=== PATIENT | female | born 1945 | race Caucasian/White ===

== ENCOUNTER 2016-12-07 13:18 | Inpatient (IN) | payer MEDICARE ==
[2016-12-07] MEDS ORDERED: IPRATROPIUM-ALBUTEROL 3 ML NEB INHALATION STA (13:28)
--- NOTE | 2016-12-07 13:40 | ED ---
General Adult HPI - General Chief complaint: Shortness of Breath Stated complaint: ROMAN Time Seen by Provider: 12/07/16 13:23 Source: patient, RN notes reviewed, old records reviewed Mode of arrival: wheelchair - History of Present Illness Initial comments: This is a 71-year-old female ER for evaluation of significant stress breath. Patient comes earlier today for evaluation of increased cough congestion shortness of breath, patient states she has a long history of smoking but no formal diagnosis of COPD or asthma. No recent fevers, shows an increased cough and congestion. Denies chest pain. Denies travel history. Denies recent hospitalizations. Patient states she has no family doctor - Related Data Allergies Allergy/AdvReac Type Severity Reaction Status Date / Time No Known Allergies Allergy Verified 12/07/16 13:29 Review of Systems ROS Statement: Those systems with pertinent positive or pertinent negative responses have been documented in the HPI. ROS Other: All systems not noted in ROS Statement are negative. Past Medical History Past Medical History: COPD, Hyperlipidemia, Hypertension, Myocardial Infarction ([place]) History of Any Multi-Drug Resistant Organisms: None Reported Past Surgical History: Unable to Obtain Past Psychological History: No Psychological Hx Reported Smoking Status: Current every day smoker Past Alcohol Use History: None Reported Past Drug Use History: None Reported General Exam General appearance: alert, in no apparent distress, anxious, in distress Head exam: Present: atraumatic, normocephalic, normal inspection Eye exam: Present: normal appearance, PERRL, EOMI. Absent: scleral icterus, conjunctival injection, periorbital swelling ENT exam: Present: normal exam, mucous membranes moist Neck exam: Present: normal inspection. Absent: tenderness, meningismus, lymphadenopathy Respiratory exam: Present: normal lung sounds bilaterally, respiratory distress , wheezes, accessory muscle use, decreased breath sounds, prolonged expiratory. Absent: rales, rhonchi, stridor Cardiovascular Exam: Present: regular rate, normal rhythm, normal heart sounds. Absent: systolic murmur, diastolic murmur, rubs, gallop, clicks GI/Abdominal exam: Present: soft, normal bowel sounds. Absent: distended, tenderness, guarding, rebound, rigid Extremities exam: Present: normal inspection, full ROM, normal capillary refill. Absent: tenderness, pedal edema, joint swelling, calf tenderness Back exam: Present: normal inspection Neurological exam: Present: alert, oriented X3, CN II-XII intact Psychiatric exam: Present: normal affect, normal mood Skin exam: Present: warm, dry, intact, normal color. Absent: rash Course Vital Signs 12/07/16 13:25 Temperature 96.9 F L Pulse Rate 99 Respiratory 26 H Rate Blood Pressure 113/74 O2 Sat by Pulse 88 L Oximetry - Reevaluation(s) Reevaluation #1: 12/07/16 13:51 Patient does have some significant improvement after prolonged breathing treatment Reevaluation #2: 12/07/16 13:52 Patient continues to deny any chest pain Reevaluation #3: 12/07/16 13:[address] Hassan regarding patient, okay for admission Medical Decision Making - Medical Decision Making 71 female in the ER with long history of smoking no formal diagnosis of COPD but likely underlying COPD with exacerbation and hypoxia. Patient be admitted for continued breathing treatments steroids IV resuscitation and cardiopulmonary monitoring - Radiology Data Radiology results: report reviewed (Chest x-ray is negative for acute disease), image reviewed Critical Care Time Critical Care Time: Yes Total Critical Care Time: 31 Disposition Clinical Impression: Acute exacerbation of chronic obstructive airways disease, Asthma with exacerbation, Hypoxia Disposition: ADMITTED IP TO THIS HOSP Condition: Fair Referrals: None,Stated [Primary Care Provider] - 1-2 days
[2016-12-07] MEDS ORDERED: methylPREDNISolone SOD SUCCI 125 MG/2 ML VIAL IV STA (13:50)
[2016-12-07 13:52] LABS: Basophils # (A) 0.1 k/uL (0-0.2); Basophils % (A) 1 %; CHCM 34.8; Eosinophils # (A) 0.3 k/uL (0-0.7); Eosinophils % (A) 3 %; HDW 2.33; HGB 15.6 gm/dL (11.4-16.0); Luc # (Auto) 0.25; Luc % (Auto) 2; Lymphocytes % (A) 9 %; MCH 32.4 pg (25.0-35.0); MCV 95.3 fL (80.0-100.0); Mean Platelet Volume 8.4; Monocytes # (A) 0.5 k/uL (0-1.0); Monocytes % (A) 4 %; Neutrophils # (A) 8.4 k/uL (1.3-7.7); Neutrophils % (A) 81 %; RBC 4.83 m/uL (3.80-5.40); WBC 10.5 k/uL (3.8-10.6); WBC (Perox) 9.98
[2016-12-07 14:01] LABS: Partial Thromboplastin Time 23.6 sec (22.0-30.0); Prothrombin Time 10.5 sec (9.0-12.0)
--- NOTE | 2016-12-07 14:02 | XR ---
EXAMINATION TYPE: XR chest 2V DATE OF EXAM: 12/07/2016 COMPARISON: 02/05/2013 INDICATION: Weakness short of breath TECHNIQUE: Frontal and lateral views of the chest are obtained. FINDINGS: The heart size is normal. The pulmonary vasculature is normal. Some mild elevation of the right diaphragm and blunting the right costophrenic angle is present. Margot picious infiltrate is not otherwise identified. IMPRESSION: 1. Blunting of the right costophrenic angle. Atelectasis and pneumonia could be considered. Follow-up can be performed.
[2016-12-07] MEDS: SODIUM CHLORIDE 0.9% 1,000 ML IV SCH (14:06)
[2016-12-07 14:12] LABS: ALT 30 U/L (9-52); AST 23 U/L (14-36); Alkaline Phosphatase 84 U/L (38-126); Anion Gap 8 mmol/L; Blood Urea Nitrogen 22 mg/dL (7-17); Calcium 9.2 mg/dL (8.4-10.2); Carbon Dioxide 24 mmol/L (22-30); Chloride 107 mmol/L (98-107); Glucose 100 mg/dL (74-99); Magnesium 1.9 mg/dL (1.6-2.3); Non-African American GFR(MDRD) >60 (>60 ml/min/1.73 sqM); Potassium 5.5 mmol/L (3.5-5.1); Sodium 139 mmol/L (137-145); Total Bilirubin 0.7 mg/dL (0.2-1.3); Total Protein 6.5 g/dL (6.3-8.2)
[2016-12-07 14:17] LABS: Creatine Kinase 77 U/L (30-135)
[2016-12-07 14:29] LABS: Troponin I <0.012 ng/mL (0.000-0.034)
[2016-12-07] MEDS: IPRATROPIUM-ALBUTEROL 3 ML NEB INHALATION SCH ×2 (15:31→19:32)
[2016-12-07] MEDS ORDERED: ALPRAZolam 0.25 MG TAB PO PRN (16:13)
[2016-12-07 17:33] VITALS: BMI 27.1
[2016-12-07 18:55] LABS: Amorphous Sediment,Urine Rare /hpf; Appearance,Urine Cloudy (Clear); Bilirubin,Urine Negative (Negative); Glucose,Urine (UA) Negative (Negative); Ketones,Urine Negative (Negative); Leukocyte Esterase,Urine Negative (Negative); Mucus,Urine Many /hpf; Nitrite,Urine Negative (Negative); Particle Count 7311; Protein,Urine 1+ (Negative); RBC,Urine 7 /hpf (0-5); Specific Gravity,Urine 1.028 (1.001-1.035); Squamous Epithelial Cell,Urine 4 /hpf (0-4); UA Billing (MACRO vs. MICRO) MICRO; WBC,Urine 1 /hpf (0-5)
[2016-12-07] MEDS: AZITHROMYCIN 500 MG TAB PO SCH (19:10)
[2016-12-07] MEDS: methylPREDNISolone SOD SUCCI 125 MG/2 ML VIAL IV SCH (19:11)
[2016-12-07 19:29] LABS: Glucose,Whole Blood 206 mg/dL (75-99)
[2016-12-07] MEDS: BUDESONIDE 1 MG/2 ML NEBU INHALATION SCH (19:32)
[2016-12-07] MEDS: FORMOTEROL FUMARATE 20 MCG/2 ML NEBU INHALATION SCH (19:32)
[2016-12-07] MEDS: INSULIN LISPRO (humaLOG) 300 UNIT/3 ML VIAL SQ SCH ×2 (19:42→20:06)
[2016-12-07 20:16] LABS: Hemoglobin A1C 5.9 % (4.2-6.1)
--- NOTE | 2016-12-07 22:39 | HP ---
HISTORY AND PHYSICAL DATE OF SERVICE: 12/07/2016 CHIEF COMPLAINT: Shortness of breath, cough and sputum. HISTORY OF PRESENT ILLNESS: This 71-year-old woman with a past medical history of multiple medical problems, including COPD, hypertension, hyperlipidemia, history of myocardial infarction, not being followed by any primary physician currently, was complaining of increasing shortness of breath. The patient also had a cough and sputum. Patient came to [facility], and the possibility of right lower lobe costophrenic angle blunting and possible pneumonia are considered. There is no history of fever, rigor or chills; no history of headache, loss of consciousness. The patient continues to smoke at this time. PAST MEDICAL HISTORY: 1. Hypertension. 2. Hyperlipidemia. 3. COPD. 4. Myocardial infarction. MEDICATIONS PRIOR TO ADMISSION: None. ALLERGIES: NONE. FAMILY HISTORY: No history of heart disease or strokes in the family. SOCIAL HISTORY: History of smoking. No history of alcohol intake. REVIEW OF SYSTEMS: ENT: No diminished hearing. No diminished vision. CARDIOVASCULAR SYSTEM: No angina. RESPIRATION: As mentioned earlier. GI: No nausea, vomiting. : No dysuria, retention. NERVOUS SYSTEM: No numbness or weakness. ALLERGY/IMMUNOLOGY: No asthma, hayfever. MUSCULOSKELETAL: As mentioned earlier. HEMATOLOGY/ONCOLOGY: No history of anemia. ENDOCRINE: No history of diabetes, hypothyroidism. CONSTITUTIONAL: As mentioned earlier. DERMATOLOGY: Negative. RHEUMATOLOGY: Negative. PSYCHIATRY: As mentioned earlier. PHYSICAL EXAMINATION: Patient is alert, oriented x3. Pulse 60, blood pressure 151/67, respiration 16, temperature 97.5, pulse ox 91% on 3 L. HEENT: Conjunctivae normal. NECK: No jugular venous distention. CARDIOVASCULAR SYSTEM: S1, S2 muffled. RESPIRATION: Breath sounds diminished at the bases. A few scattered rhonchi, expiratory wheezing and crackles bilaterally. Breathing efforts are markedly increased. Accessory muscles of respiration are acting. ABDOMEN: Soft, non-tender. No mass palpable. No hepatosplenomegaly. LEGS: No edema. No swelling. NERVOUS SYSTEM: Higher functions as mentioned earlier. Moves all 4 limbs. No focal motor or sensory deficits. LYMPHATICS: No lymph node palpable in neck, axillae or groin. SKIN: No ulcer, rash, bleeding. LABS: CBC within normal limits. Sodium 139, potassium 5.5. ASSESSMENT: 1. Chronic obstructive pulmonary disease, acute exacerbation, with acute purulent tracheobronchitis or right bronchopneumonia. 2. History of nicotine dependence. 3. Hyperkalemia. 4. Hyperlipidemia. 5. Hypertension. 6. History of myocardial infarction. 7. History of nicotine dependence. RECOMMENDATIONS AND DISCUSSION: In this 71-year-old woman who presented with multiple complex medical issues, we will monitor the patient closely, continue the current medication, continue symptomatic treatment, continue with IV steroids. Will initiate broad-spectrum IV antibiotics. DVT prophylaxis. I would recommend Rocephin and Zithromax. Smoking cessation; Habitrol 21. Symptomatic treatment. Monitor closely. I would also recommend pulmonary consultation with Dr. Sevilla. The patient would like to follow up with Dr. Tavares May in the outpatient setting. A copy of this dictation will be forwarded to Dr. May. Prognosis guarded. MMCYRUSL / IJN: [id number] /
[2016-12-08] MEDS: methylPREDNISolone SOD SUCCI 125 MG/2 ML VIAL IV SCH ×5 (01:20→23:49)
[2016-12-08] MEDS: ACETAMINOPHEN TAB 500 MG TAB PO PRN (01:22)
[2016-12-08 07:01] LABS: Glucose,Whole Blood 144 mg/dL (75-99)
[2016-12-08] MEDS: IPRATROPIUM-ALBUTEROL 3 ML NEB INHALATION SCH ×4 (07:10→19:41)
[2016-12-08] MEDS: BUDESONIDE 1 MG/2 ML NEBU INHALATION SCH ×2 (07:10→19:41)
[2016-12-08] MEDS: FORMOTEROL FUMARATE 20 MCG/2 ML NEBU INHALATION SCH ×2 (07:10→19:41)
[2016-12-08] MEDS: INSULIN LISPRO (humaLOG) 300 UNIT/3 ML VIAL SQ SCH ×4 (08:53→21:29)
[2016-12-08] MEDS: PANTOPRAZOLE 40 MG TABLET PO SCH (08:54)
[2016-12-08] MEDS: ENOXAPARIN 40 MG/0.4 ML SYRINGE SQ SCH (08:55)
[2016-12-08 08:56] LABS: Appearance,Urine Clear (Clear); Bacteria,Urine Rare /hpf; Bilirubin,Urine Negative (Negative); Glucose,Urine (UA) Negative (Negative); Ketones,Urine Trace (Negative); Leukocyte Esterase,Urine Negative (Negative); Mucus,Urine Few /hpf; Nitrite,Urine Negative (Negative); Particle Count 5419; Protein,Urine 1+ (Negative); RBC,Urine 4 /hpf (0-5); Specific Gravity,Urine 1.029 (1.001-1.035); Squamous Epithelial Cell,Urine 3 /hpf (0-4); UA Billing (MACRO vs. MICRO) MICRO; Urobilinogen,Urine <2.0 mg/dL (<2.0); WBC,Urine 1 /hpf (0-5)
[2016-12-08] MEDS: SODIUM CHLORIDE 0.9% 1,000 ML IV SCH (08:56)
[2016-12-08] MEDS: NICOTINE 21MG/24HR PATCH TRANSDERM SCH (08:56)
[2016-12-08 08:59] LABS: Basophils % (A) 0 %; CH 31.6; CHCM 33.4; Eosinophils % (A) 0 %; HDW 2.27; HGB 14.9 gm/dL (11.4-16.0); Luc # (Auto) 0.05; Luc % (Auto) 1; Lymphocytes # (A) 0.5 k/uL (1.0-4.8); Lymphocytes % (A) 6 %; MCH 32.1 pg (25.0-35.0); MCHC 33.8 g/dL (31.0-37.0); Mean Platelet Volume 7.8; Monocytes # (A) 0.1 k/uL (0-1.0); Monocytes % (A) 1 %; Neutrophils # (A) 7.9 k/uL (1.3-7.7); Neutrophils % (A) 92 %; RBC 4.63 m/uL (3.80-5.40); WBC 8.6 k/uL (3.8-10.6); WBC (Perox) 9.04
[2016-12-08 09:13] LABS: Anion Gap 13 mmol/L; Blood Urea Nitrogen 26 mg/dL (7-17); Carbon Dioxide 20 mmol/L (22-30); Chloride 106 mmol/L (98-107); Glucose 209 mg/dL (74-99); Non-African American GFR(MDRD) >60 (>60 ml/min/1.73 sqM); Potassium 4.3 mmol/L (3.5-5.1); Sodium 139 mmol/L (137-145)
[2016-12-08] MEDS: MULTIVITAMINS, THERA 1 EACH TAB PO SCH (11:14)
[2016-12-08 11:27] LABS: Glucose,Whole Blood 158 mg/dL (75-99)
[2016-12-08] MEDS ORDERED: IPRATROPIUM-ALBUTEROL 3 ML NEB INHALATION PRN (11:43)
[2016-12-08 14:43] VITALS: RESP 18
[2016-12-08] MEDS ORDERED: RX INFO: IV CONTRAST WAS GIVEN 1 EACH MISC MISCELLANE PRN (15:05)
--- NOTE | 2016-12-08 15:31 | P.CNPUL ---
History of Present Illness Consult date: 12/08/16 Requesting physician: Herman Dhillon Reason for consult: dyspnea, chest pain, COPD Chief complaint: Shortness of breath, cough and chest pain History of present illness: This is a 71-year-old female with history of multiple medical problems including COPD, hypertension, history of previous [place], history of pleural effusion requiring thoracentesis and drainage back in 2007. According to the patient, I saw her back then in 2007, and I drained her right lung. Since then , the patient had no further follow-up, she used to see Dr. Dr. Solitario on a regular basis, but since he left town patient did not seek any medical care by any other physician. She is planning however to establish care with Dr. Tavares May after discharge from the hospital. Patient presented to the ER with a few days' history of increased shortness of breath, substernal chest pain slightly pleuritic in nature, and a dry hacking cough. With minimal wheezing. Patient has been using her albuterol inhaler but not much relief. Presented to the ER, chest x-ray showed no evidence of active disease, there is blunting of the right costophrenic angle, but no other significant findings. Patient was admitted with the impression of acute exacerbation of COPD and tracheobronchitis , no clear-cut evidence of pneumonia on the chest x-ray. However her symptoms seem to be more pronounced and out of proportion to the physical findings hence I recommended a CT angiogram of the chest. In the meantime, I recommended that we'll continue treatment plan with bronchodilators and empiric antibiotics. Review of Systems Constitutional: No fever, no chills, no weight loss, no aches and pains except for chest pain as noted in HPI. Pulmonary: Cough, shortness of breath, some wheezing, and substernal chest discomfort. GI: No nausea no vomiting no abdominal pain no melena no hematemesis Genitourinary: No dysuria, no frequency, no urgency, no nausea no vomiting. Hematologic: No history of clotting or bleeding or bruising. Psychiatric: Denies any symptoms of active depression. Cardiac: Denies any palpitations, no symptoms of angina, but she does have some vague chest discomfort, pleuritic in nature. Neurologic: No headaches blurred vision or dizziness or ataxia. Musko skeletal: No aches and pains. Except for chest pain. Past Medical History Past Medical History: COPD, Hyperlipidemia, Hypertension, Myocardial Infarction ([place]) Last Myocardial Infarction Date:: 2007 History of Any Multi-Drug Resistant Organisms: None Reported Past Surgical History: Unable to Obtain, Cholecystectomy, Hysterectomy, Tonsillectomy Past Psychological History: No Psychological Hx Reported Smoking Status: Current every day smoker Past Alcohol Use History: None Reported Past Drug Use History: None Reported - Past Family History Father Family Medical History: Myocardial Infarction ([place]) Mother Family Medical History: Diabetes Mellitus Medications and Allergies Home Medications Medication Instructions Recorded Confirmed Type No Known Home Medications [No 12/07/16 12/07/16 History Known Home Medications] Allergies Allergy/AdvReac Type Severity Reaction Status Date / Time No Known Allergies Allergy Verified 12/07/16 14:07 Physical Exam Vitals: Vital Signs Temp Pulse Pulse Resp BP Pulse Ox 12/08/16 15:15 18 12/08/16 15:11 82 12/08/16 14:41 97.1 F L 77 18 157/72 94 L 12/08/16 11:28 88 12/08/16 11:13 88 12/08/16 08:31 97.6 F 82 20 144/74 88 L 12/08/16 08:00 82 20 12/08/16 07:31 86 12/08/16 07:20 86 12/08/16 07:19 88 12/08/16 07:12 86 16 12/07/16 23:00 96.5 F L 66 16 142/68 92 L 12/07/16 21:02 19 12/07/16 19:56 88 12/07/16 19:43 89 12/07/16 19:32 85 12/07/16 16:07 97.5 F L 60 16 151/67 91 L Intake and Output 12/08/16 12/08/16 12/08/16 06:59 14:59 22:59 Intake Total 480 1979 Balance 480 1979 Intake: IV 480 Sodium Chloride 0.9% 1, 480 000 ml @ 60 mls/hr IV . [id number] LUCIANO Rx#:[id number] Intake, IV Titration 360 Amount Sodium Chloride 0.9% 1, 360 000 ml @ 60 mls/hr IV . [id number] LUCIANO Rx#:[id number] Oral 1620 Other: Voiding Method Toilet Toilet # Voids 2 Weight 73.936 kg Patient Weight 12/09/16 06:59 Weight 73.936 kg Physical Exam: Revealed a 71-year-old female in mild respiratory distress HEENT:[Neck is supple.] [No neck masses.] [No thyromegaly.] [No JVD.] Chest: [Diminished breath sounds bilaterally, some wheezing on forced expiratory maneuver was noted.] Cardiac Exam: [Normal S1 and S2, no S3 gallop, no murmur.] Abdomen: [Soft, nontender, no megaly, no rebound, no guarding, normal bowel sounds.] Extremities: [No clubbing, no edema, no cyanosis.] Neurological Exam: [No focal neurologic deficit.] Results - Laboratory Findings CBC and BMP: 12/08/16 08:38 12/08/16 08:38 PT/INR, D-dimer PT 10.5 sec (9.0-12.0) 12/07/16 13:37 INR 1.0 (<1.2) 12/07/16 13:37 Abnormal lab findings: Abnormal Labs 12/07/16 12/07/16 12/07/16 13:37 13:37 18:30 Neutrophils # 8.4 H Lymphocytes # Potassium 5.5 H Carbon Dioxide BUN 22 H Glucose 100 H POC Glucose (mg/dL) Urine Appearance Cloudy H Urine Protein 1+ H Urine Ketones Urine Blood Trace H Urine RBC 7 H Amorphous Sediment Rare H Urine Bacteria Hyaline Casts Urine Mucus Many H 12/07/16 12/08/16 12/08/16 19:28 07:00 08:35 Neutrophils # Lymphocytes # Potassium Carbon Dioxide BUN Glucose POC Glucose (mg/dL) 206 H 144 H Urine Appearance Urine Protein 1+ H Urine Ketones Trace H Urine Blood Urine RBC Amorphous Sediment Urine Bacteria Rare H Hyaline Casts 4 H Urine Mucus Few H 12/08/16 12/08/16 12/08/16 08:38 08:38 11:25 Neutrophils # 7.9 H Lymphocytes # 0.5 L Potassium Carbon Dioxide 20 L BUN 26 H Glucose 209 H POC Glucose (mg/dL) 158 H Urine Appearance Urine Protein Urine Ketones Urine Blood Urine RBC Amorphous Sediment Urine Bacteria Hyaline Casts Urine Mucus - Diagnostic Findings Chest x-ray: image reviewed (As noted in the history of the present illness) Assessment and Plan Plan: Impression: 1 acute exacerbation of COPD and purulent tracheobronchitis, no evidence of pneumonia, patient has chronic blunting of the right costophrenic angle and she had previous right sided pleural effusion requiring thoracentesis in 2007. 2 history of nicotine dependence, patient was counseled regarding smoking cessation. 3 history of previous myocardial infarction and underlying coronary artery disease. 4 history of essential hypertension 5 history of hyperlipidemia. 6 history of right sided pleural effusion requiring thoracentesis may have been cardiac or possibly parapneumonic in nature. Recommendation: I fully agree with the present treatment plan as outlined by Dr. Dhillon, however I am a bit concerned that the patient seems to be more short of breath than expected considering the findings on physical examination. Hence I recommended a CT angiogram of the chest to rule out the possibility of underlying pulmonary embolism. We'll continue to follow. Discussed my recommendations with the patient and she is agreeable to proceed with a CT angiogram of the chest now. Time with Patient: Greater than 30
--- NOTE | 2016-12-08 15:59 | CT ---
EXAMINATION TYPE: CT chest angio for PE DATE OF EXAM: 12/08/2016 COMPARISON: NONE HISTORY: SOB CT DLP: 257.2 mGycm. Automated Exposure Control for Dose Reduction was Utilized. CONTRAST: CTA scan of the thorax is performed with IV Contrast, patient injected with 60 mL of Omnipaque 350, p ulmonary embolism protocol. MIP Images are created on CT scanner and reviewed. FINDINGS: LUNGS: There is background of mild to moderate emphysematous change. There are some scattered basilar linear scarring and/or atelectasis identified bilaterally. Slightly elevated right hemidiaphragm is seen. There is no suspicious focal consolidation. No concerning parenchymal nodule or mass is present . There is mild central peribronchial wall thickening likely on basis of underlying COPD. No suspicio us pleural effusion or pneumothorax is present. MEDIASTINUM: There is satisfactory suboptimal bolus with thecal contrast in right and left heart syst ems but there is no CT evidence for pulmonary embolism. Main pulmonary artery measures 2.6 cm in diam eter on axial image 56. Adjacent ascending aorta measures 2.9 cm in diameter. There are no greater th an 1 cm hilar or mediastinal lymph nodes. No cardiomegaly or pericardial effusion is seen. Coronary artery calcification is noted which is noted marker for coronary artery disease. There is mild to mo derate mixed plaque in the descending aorta with moderate plaque seen in visualized abdominal aorta. OTHER: Small hiatal hernia is present. Cholecystectomy clips are noted. There is 2.9 x 1.8 cm low den se left adrenal nodule consistent with lipid rich benign adenoma. Mild multilevel spurring in thoraci c spine is present. IMPRESSION: 1. Suboptimal bolus without CT evidence for acute pulmonary embolism. 2. Mild to moderate emphysematous change without suspicious acute pulmonary process.
[2016-12-08 16:43] LABS: Glucose,Whole Blood 141 mg/dL (75-99)
[2016-12-08] MEDS: AZITHROMYCIN 500 MG TAB PO SCH (18:28)
[2016-12-08 21:16] LABS: Glucose,Whole Blood 162 mg/dL (75-99)
[2016-12-08] MEDS: FLUTICASONE 50MCG/SPRAY NASAL 16GM EA NOSTRIL SCH (21:29)
[2016-12-08] MEDS: MONTELUKAST 10 MG TAB PO SCH (21:30)
--- NOTE | 2016-12-08 21:50 | PN ---
PROGRESS NOTE DATE OF SERVICE: 12/08/2016 This 71-year-old woman who was admitted with COPD, acute exacerbation, also has significant shortness of breath at this time. Dr. Sevilla's evaluation is in progress at this time. The patient is on IV steroids as well as bronchodilators and empiric antibiotics. Blood sugars are also being closely monitored. The patient also has DVT prophylaxis. No chest pain. No palpitations. PHYSICAL EXAM: Alert and oriented x3. Pulse is 82, blood pressure 144/74, respiration 20, temperature 97.6, pulse ox 88% on 3 L. HEENT: Conjunctivae normal. Oral mucosa moist. NECK: No jugular venous distention. No carotid bruit. No lymph node enlargement. CARDIOVASCULAR SYSTEM: S1, S2 muffled. No S3. No S4. RESPIRATION: Breath sounds diminished at the bases. Bilateral scattered rhonchi and crackles. Expiratory wheezing also present. ABDOMEN: Soft, non-tender. LEGS: No edema. No swelling. NERVOUS SYSTEM: No focal deficit. HEENT: Normal color, mucosa moist. Neck is no nausea. No lymph node LABS: Glucose 209 and 158. ASSESSMENT: 1. Chronic obstructive pulmonary disease, acute exacerbation, with acute purulent tracheobronchitis and bronchopneumonia with acute hypoxic respiratory failure. 2. History of nicotine dependence. 3. Hyperkalemia. 4. Hyperlipidemia. 5. Hypertension. 6. History of myocardial infarction. RECOMMENDATIONS AND DISCUSSION: I recommend to continue current medication, continue symptomatic treatment, continue with high-dose IV steroids. Continue the bronchodilators. Closely follow with Pulmonary. Otherwise, guarded prognosis. Smoking cessation has been advised. Further recommendations to follow. MMODL / IJN: [id number] / MTDD
[2016-12-09] MEDS: methylPREDNISolone SOD SUCCI 125 MG/2 ML VIAL IV SCH (06:34)
[2016-12-09 06:53] LABS: Glucose,Whole Blood 135 mg/dL (75-99)
[2016-12-09] MEDS: FORMOTEROL FUMARATE 20 MCG/2 ML NEBU INHALATION SCH ×2 (07:31→21:22)
[2016-12-09] MEDS: BUDESONIDE 1 MG/2 ML NEBU INHALATION SCH ×2 (07:32→21:22)
[2016-12-09] MEDS: IPRATROPIUM-ALBUTEROL 3 ML NEB INHALATION SCH ×4 (07:32→21:22)
[2016-12-09] MEDS: INSULIN LISPRO (humaLOG) 300 UNIT/3 ML VIAL SQ SCH ×4 (08:20→21:32)
[2016-12-09] MEDS: ENOXAPARIN 40 MG/0.4 ML SYRINGE SQ SCH (08:21)
[2016-12-09] MEDS: PANTOPRAZOLE 40 MG TABLET PO SCH (08:21)
[2016-12-09] MEDS: NICOTINE 21MG/24HR PATCH TRANSDERM SCH (08:21)
[2016-12-09] MEDS: FLUTICASONE 50MCG/SPRAY NASAL 16GM EA NOSTRIL SCH (08:22)
[2016-12-09 08:26] LABS: Anion Gap 8 mmol/L; Blood Urea Nitrogen 22 mg/dL (7-17); Calcium 9.1 mg/dL (8.4-10.2); Carbon Dioxide 23 mmol/L (22-30); Chloride 106 mmol/L (98-107); Glucose 135 mg/dL (74-99); Non-African American GFR(MDRD) >60 (>60 ml/min/1.73 sqM); Potassium 4.7 mmol/L (3.5-5.1); Sodium 137 mmol/L (137-145)
[2016-12-09 08:46] LABS: Basophils % (A) 0 %; CH 31.8; CHCM 33.8; Eosinophils % (A) 0 %; HCT 42.5 % (34.0-46.0); HDW 2.26; HGB 14.6 gm/dL (11.4-16.0); Luc # (Auto) 0.04; Luc % (Auto) 0; Lymphocytes # (A) 0.6 k/uL (1.0-4.8); Lymphocytes % (A) 4 %; MCH 32.4 pg (25.0-35.0); MCHC 34.4 g/dL (31.0-37.0); MCV 94.4 fL (80.0-100.0); Mean Platelet Volume 7.9; Monocytes # (A) 0.2 k/uL (0-1.0); Monocytes % (A) 1 %; Neutrophils # (A) 13.7 k/uL (1.3-7.7); Neutrophils % (A) 94 %; WBC 14.6 k/uL (3.8-10.6); WBC (Perox) 15.67
[2016-12-09] MEDS: SODIUM CHLORIDE 0.9% 1,000 ML IV SCH (08:48)
[2016-12-09 11:44] LABS: Glucose,Whole Blood 136 mg/dL (75-99)
--- NOTE | 2016-12-09 12:13 | P.PN ---
Subjective This is a 71-year-old female with history of multiple medical problems including COPD, hypertension, history of previous [place], history of pleural effusion requiring thoracentesis and drainage back in 2007. According to the patient, I saw her back then in 2007, and I drained her right lung. Since then , the patient had no further follow-up, she used to see Dr. Dr. Solitario on a regular basis, but since he left town patient did not seek any medical care by any other physician. She is planning however to establish care with Dr. Tavares May after discharge from the hospital. Patient presented to the ER with a few days' history of increased shortness of breath, substernal chest pain slightly pleuritic in nature, and a dry hacking cough. With minimal wheezing. Patient has been using her albuterol inhaler but not much relief. Presented to the ER, chest x-ray showed no evidence of active disease, there is blunting of the right costophrenic angle, but no other significant findings. Patient was admitted with the impression of acute exacerbation of COPD and tracheobronchitis , no clear-cut evidence of pneumonia on the chest x-ray. However her symptoms seem to be more pronounced and out of proportion to the physical findings hence I recommended a CT angiogram of the chest. In the meantime, I recommended that we'll continue treatment plan with bronchodilators and empiric antibiotics. The patient is seen again today 12/09/2016 in follow-up on the regular medical floor. She is awake and alert in no acute distress. She is still quite dyspneic on minimal exertion. Still somewhat bronchospastic and wheezing. She states she is breathing a little better today but still not quite back to her baseline. She is requiring 3 L/m per nasal cannula to maintain O2 saturations in the 90s. She tested at 84% on room air. Her computed tomography scan ruled out pulmonary embolism. She has mild to moderate emphysema changes but no acute pulmonary process. Objective - Vital Signs Vital signs: Vital Signs Temp 97.9 F 12/09/16 07:00 Pulse 88 12/09/16 11:27 Resp 18 12/09/16 07:00 BP 179/79 12/09/16 07:00 Pulse Ox 94 L 12/09/16 09:06 Intake & Output 09/07/17 09/08/17 09/08/17 18:59 06:59 18:59 Intake Total 1979 720 Balance 1979 720 Weight 73.936 kg Intake: IV 720 Sodium Chloride 0.9% 1, 720 000 ml @ 60 mls/hr IV . [id number] LUCIANO Rx#:[id number] Intake, IV Titration 360 Amount Sodium Chloride 0.9% 1, 360 000 ml @ 60 mls/hr IV . [id number] LUCIANO Rx#:[id number] Oral 1620 Other: Voiding Method Toilet Toilet # Voids 2 - Exam GENERAL EXAM: Alert, active, comfortable in no apparent distress. HEAD: Normocephalic. EYES: Normal reaction of pupils, equal size. NOSE: Clear with pink turbinates. THROAT: No erythema or exudates. NECK: No masses, no JVD. CHEST: No chest wall deformity. LUNGS: Equal air entry with bilateral end expiratory wheeze. Diminished.. CVS: S1 and S2 normal with no audible murmurs, regular rhythm. ABDOMEN: No hepatosplenomegaly, normal bowel sounds, no guarding or rigidity. SPINE: No scoliosis or deformity SKIN: No rashes CENTRAL NERVOUS SYSTEM: No focal deficits, tone is normal in all 4 extremities. Extremities: There is no significant peripheral edema. No clubbing, no cyanosis. Peripheral pulses are intact. - Labs CBC & Chem 7: 12/09/16 07:47 12/09/16 07:47 Labs: Abnormal Lab Results - Last 24 Hours (Table) 12/08/16 12/08/16 12/09/16 Range/Units 16:32 21:14 06:52 WBC (3.8-10.6) k/uL Neutrophils # (1.3-7.7) k/uL Lymphocytes # (1.0-4.8) k/uL BUN (7-17) mg/dL Glucose (74-99) mg/dL POC Glucose (mg/dL) 141 H 162 H 135 H (75-99) mg/dL 12/09/16 12/09/16 12/09/16 Range/Units 07:47 07:47 11:40 WBC 14.6 H (3.8-10.6) k/uL Neutrophils # 13.7 H (1.3-7.7) k/uL Lymphocytes # 0.6 L (1.0-4.8) k/uL BUN 22 H (7-17) mg/dL Glucose 135 H (74-99) mg/dL POC Glucose (mg/dL) 136 H (75-99) mg/dL Microbiology - Last 24 Hours (Table) 12/08/16 08:10 Gram Stain - Preliminary Sputum Sputum Culture - Preliminary 12/07/16 18:30 Urine Culture - Preliminary Urine,Clean Catch Gram Neg Bacilli Assessment and Plan Plan: Impression: #1 Acute exacerbation of chronic obstructive pulmonary disease, complicated by purulent tracheobronchitis. No evidence of pneumonia. No pulmonary embolism. Chronic blunting of the right costophrenic angle from previous right-sided pleural effusion status post thoracentesis in 2007. #2 Chronic and ongoing tobacco dependence. #3 Acute hypoxic respiratory failure secondary to above. #4 Coronary artery disease. #5 Hypertension. #6 Hyperlipidemia. Plan: The patient was seen and evaluated by Dr. Sevilla. His chest x-ray and CAT scans were reviewed. There is no acute pulmonary process. We will continue with her current medications including bronchodilators, Pulmicort and Perforomist inhalations twice a day, IV Solu-Medrol. Continue Singulair. She is on empiric antibiotics in the form of Rocephin and azithromycin. She is on Lovenox for DVT prophylaxis. Protonix for GI prophylaxis. She is again educated regarding the importance of complete smoking cessation. A NicoDerm patches in place. We'll increase her activity as tolerated. We'll continue to follow.
[2016-12-09] MEDS: SPIRONOLACTONE 25 MG TAB PO SCH (12:43)
[2016-12-09] MEDS: MULTIVITAMINS, THERA 1 EACH TAB PO SCH (12:43)
[2016-12-09] MEDS: LEVOTHYROXINE 100 MCG TAB PO SCH (12:44)
[2016-12-09] MEDS: methylPREDNISolone SOD SUCCI 40 MG/ML 1 ML VIAL IV SCH (16:27)
[2016-12-09 16:47] LABS: Glucose,Whole Blood 114 mg/dL (75-99)
[2016-12-09] MEDS: AZITHROMYCIN 500 MG TAB PO SCH (17:27)
[2016-12-09] MEDS: CARVEDILOL 12.5 MG TAB PO SCH (17:27)
[2016-12-09 20:54] LABS: Glucose,Whole Blood 140 mg/dL (75-99)
[2016-12-09] MEDS ORDERED: ATORVASTATIN 20 MG TAB PO SCH (21:00)
[2016-12-09] MEDS ORDERED: CITALOPRAM HYDROBROMIDE 20 MG TAB PO SCH (21:00)
[2016-12-09] MEDS ORDERED: LISINOPRIL 10 MG TAB PO SCH (21:00)
[2016-12-09] MEDS: MONTELUKAST 10 MG TAB PO SCH (21:44)
[2016-12-10] MEDS: methylPREDNISolone SOD SUCCI 40 MG/ML 1 ML VIAL IV SCH ×2 (01:05→08:04)
[2016-12-10] MEDS: SODIUM CHLORIDE 0.9% 1,000 ML IV SCH ×2 (01:33→10:02)
[2016-12-10] MEDS: LEVOTHYROXINE 100 MCG TAB PO SCH (06:39)
[2016-12-10 07:04] LABS: Basophils % (A) 0 %; CH 32.8; CHCM 34.2; Eosinophils % (A) 0 %; HCT 41.3 % (34.0-46.0); HDW 2.28; HGB 13.6 gm/dL (11.4-16.0); Luc # (Auto) 0.09; Luc % (Auto) 1; Lymphocytes # (A) 0.7 k/uL (1.0-4.8); Lymphocytes % (A) 6 %; MCH 31.8 pg (25.0-35.0); MCV 96.4 fL (80.0-100.0); Mean Platelet Volume 8.4; Monocytes # (A) 0.2 k/uL (0-1.0); Monocytes % (A) 2 %; Neutrophils # (A) 10.9 k/uL (1.3-7.7); Neutrophils % (A) 92 %; RBC 4.28 m/uL (3.80-5.40); WBC 11.9 k/uL (3.8-10.6); WBC (Perox) 11.84
[2016-12-10 07:29] LABS: Glucose,Whole Blood 135 mg/dL (75-99)
[2016-12-10 07:40] LABS: Anion Gap 7 mmol/L; Blood Urea Nitrogen 23 mg/dL (7-17); Calcium 8.7 mg/dL (8.4-10.2); Carbon Dioxide 21 mmol/L (22-30); Chloride 106 mmol/L (98-107); Glucose 126 mg/dL (74-99); Non-African American GFR(MDRD) >60 (>60 ml/min/1.73 sqM); Potassium 4.7 mmol/L (3.5-5.1); Sodium 134 mmol/L (137-145)
[2016-12-10] MEDS: CARVEDILOL 12.5 MG TAB PO SCH (08:02)
[2016-12-10] MEDS: NICOTINE 21MG/24HR PATCH TRANSDERM SCH (08:02)
[2016-12-10] MEDS: PANTOPRAZOLE 40 MG TABLET PO SCH (08:03)
[2016-12-10] MEDS: ENOXAPARIN 40 MG/0.4 ML SYRINGE SQ SCH (08:04)
[2016-12-10] MEDS: FLUTICASONE 50MCG/SPRAY NASAL 16GM EA NOSTRIL SCH (08:05)
[2016-12-10] MEDS: SPIRONOLACTONE 25 MG TAB PO SCH (08:06)
[2016-12-10] MEDS: MULTIVITAMINS, THERA 1 EACH TAB PO SCH (08:06)
[2016-12-10] MEDS: INSULIN LISPRO (humaLOG) 300 UNIT/3 ML VIAL SQ SCH ×2 (08:07→13:23)
[2016-12-10 08:08] VITALS: BP 165/77; TEMP 97.7
[2016-12-10] MEDS: FORMOTEROL FUMARATE 20 MCG/2 ML NEBU INHALATION SCH (09:11)
[2016-12-10] MEDS: IPRATROPIUM-ALBUTEROL 3 ML NEB INHALATION SCH ×2 (09:11→12:42)
[2016-12-10] MEDS: BUDESONIDE 1 MG/2 ML NEBU INHALATION SCH (09:11)
--- NOTE | 2016-12-10 09:17 | PN ---
PROGRESS NOTE DATE OF SERVICE: 12/09/2016 This 71-year-old woman was admitted with COPD acute exacerbation has been closely monitored. No chest pain. No palpitations. No fever. EXAM: On exam, alert and oriented x3. The pulse is 69, blood pressure 179/79. Respiration 18, temperature 97.9, pulse ox 97% on 3 L. HEENT: Conjunctivae normal. NECK: No jugular venous distention. CARDIOVASCULAR: S1, S2. RESPIRATORY: Breath sounds diminished in the bases. A few scattered rhonchi and crackles. Expiratory wheezing also present. ABDOMEN: Soft, nontender. LEGS: No edema. NERVOUS SYSTEM: No focal deficits. LABS: WBC 14.8, hemoglobin 14.6. ASSESSMENT: 1. Chronic obstructive pulmonary disease acute exacerbation with acute purulent tracheobronchitis with possibly right bronchopneumonia with acute hypoxic respiratory failure. 2. History of nicotine dependence. 3. Hypokalemia. 4. Hyperlipidemia. 5. Hypertension. 6. History of myocardial infarction. RECOMMENDATIONS AND DISCUSSION: I recommend to continue current medications. Continue symptomatic treatment. Otherwise at this time I recommend to continue the current medication. Taper the steroids, otherwise continue to monitor. Guarded prognosis because of multiple complex medical issues. Closely followed by Dr. Sevilla. Further recommendations to follow. MMODL / IJN: [id number] /
[2016-12-10 09:56] VITALS: PULSE 82
[2016-12-10] MEDS: ACETAMINOPHEN TAB 500 MG TAB PO PRN (11:30)
[2016-12-10 11:59] LABS: Glucose,Whole Blood 130 mg/dL (75-99)
--- NOTE | 2016-12-10 12:53 | P.PN ---
Subjective This is a 71-year-old female with history of multiple medical problems including COPD, hypertension, history of previous NV, history of pleural effusion requiring thoracentesis and drainage back in 2007. According to the patient, I saw her back then in 2007, and I drained her right lung. Since then , the patient had no further follow-up, she used to see Dr. Dr. Solitario on a regular basis, but since he left town patient did not seek any medical care by any other physician. She is planning however to establish care with Dr. Tavares May after discharge from the hospital. Patient presented to the ER with a few days' history of increased shortness of breath, substernal chest pain slightly pleuritic in nature, and a dry hacking cough. With minimal wheezing. Patient has been using her albuterol inhaler but not much relief. Presented to the ER, chest x-ray showed no evidence of active disease, there is blunting of the right costophrenic angle, but no other significant findings. Patient was admitted with the impression of acute exacerbation of COPD and tracheobronchitis , no clear-cut evidence of pneumonia on the chest x-ray. However her symptoms seem to be more pronounced and out of proportion to the physical findings hence I recommended a CT angiogram of the chest. In the meantime, I recommended that we'll continue treatment plan with bronchodilators and empiric antibiotics. The patient is seen again today 12/09/2016 in follow-up on the regular medical floor. She is awake and alert in no acute distress. She is still quite dyspneic on minimal exertion. Still somewhat bronchospastic and wheezing. She states she is breathing a little better today but still not quite back to her baseline. She is requiring 3 L/m per nasal cannula to maintain O2 saturations in the 90s. She tested at 84% on room air. Her computed tomography scan ruled out pulmonary embolism. She has mild to moderate emphysema changes but no acute pulmonary process. She was seen again today 12/10/2016 in follow-up on the regular medical floor. She is awake and alert in no acute distress. She is feeling quite a bit better today as compared to yesterday. She denies any worsening shortness of breath, cough or congestion. She's been up ambulating without significant distress. He is maintaining O2 saturations in the low 90s on room air. She's been afebrile. She's been treated with ceftriaxone and azithromycin. Objective - Vital Signs Vital signs: Vital Signs Temp 97.7 F 12/10/16 07:00 Pulse 66 12/10/16 09:33 Resp 18 12/10/16 08:00 BP 165/77 12/10/16 07:00 Pulse Ox 91 L 12/10/16 09:13 Intake & Output 12/09/16 12/10/16 12/10/16 18:59 06:59 18:59 Intake Total 480 600 Balance 480 600 Weight 73.936 kg Intake: IV 480 Sodium Chloride 0.9% 1, 480 000 ml @ 60 mls/hr IV . [id number] LUCIANO Rx#:[id number] Intake, IV Titration 400 Amount cefTRIAXone 1,000 mg In 400 Sodium Chloride 0.9% 50 ml @ 100 mls/hr IVPB Q24H LUCIANO Rx#:[id number] Oral 200 Other: Voiding Method Toilet Toilet # Voids 3 2 1 - Exam GENERAL EXAM: Alert, active, comfortable in no apparent distress. HEAD: Normocephalic. EYES: Normal reaction of pupils, equal size. NOSE: Clear with pink turbinates. THROAT: No erythema or exudates. NECK: No masses, no JVD. CHEST: No chest wall deformity. LUNGS: Equal air entry with faint bilateral end expiratory wheeze. Diminished.. CVS: S1 and S2 normal with no audible murmurs, regular rhythm. ABDOMEN: No hepatosplenomegaly, normal bowel sounds, no guarding or rigidity. SPINE: No scoliosis or deformity SKIN: No rashes CENTRAL NERVOUS SYSTEM: No focal deficits, tone is normal in all 4 extremities. Extremities: There is no significant peripheral edema. No clubbing, no cyanosis. Peripheral pulses are intact. - Labs CBC & Chem 7: 12/10/16 06:44 12/10/16 06:44 Labs: Abnormal Lab Results - Last 24 Hours (Table) 12/09/16 12/09/16 12/10/16 Range/Units 16:45 20:52 06:44 WBC 11.9 H (3.8-10.6) k/uL Neutrophils # 10.9 H (1.3-7.7) k/uL Lymphocytes # 0.7 L (1.0-4.8) k/uL Sodium (137-145) mmol/L Carbon Dioxide (22-30) mmol/L BUN (7-17) mg/dL Glucose (74-99) mg/dL POC Glucose (mg/dL) 114 H 140 H (75-99) mg/dL 12/10/16 12/10/16 12/10/16 Range/Units 06:44 07:28 11:57 WBC (3.8-10.6) k/uL Neutrophils # (1.3-7.7) k/uL Lymphocytes # (1.0-4.8) k/uL Sodium 134 L (137-145) mmol/L Carbon Dioxide 21 L (22-30) mmol/L BUN 23 H (7-17) mg/dL Glucose 126 H (74-99) mg/dL POC Glucose (mg/dL) 135 H 130 H (75-99) mg/dL Microbiology - Last 24 Hours (Table) 12/08/16 08:10 Gram Stain - Final Sputum Sputum Culture - Preliminary 12/07/16 18:30 Urine Culture - Final Urine,Clean Catch Escherichia coli Assessment and Plan Plan: Impression: #1 Acute exacerbation of chronic obstructive pulmonary disease, complicated by purulent tracheobronchitis. No evidence of pneumonia. No pulmonary embolism. Chronic blunting of the right costophrenic angle from previous right-sided pleural effusion status post thoracentesis in 2007. #2 Chronic and ongoing tobacco dependence. #3 Acute hypoxic respiratory failure secondary to above. #4 Coronary artery disease. #5 Hypertension. #6 Hyperlipidemia. Plan: The patient was seen and evaluated by Dr. Sevilla. The patient is cleared for discharge from the pulmonary standpoint. Continue a prednisone taper. Continue her Singulair. Continue with Symbicort and albuterol. Complete her course of antibiotics. She is again educated regarding the importance of complete smoking cessation. A NicoDerm patch is in place. She should follow- up in our office in 1-2 weeks' time. We'll perform a full pulmonary function testing to evaluate the severity of her COPD and make further recommendations regarding maintenance medications. She is encouraged to call sooner with any recurrence of symptoms or other questions or concerns.
--- NOTE | 2016-12-10 18:08 | P.DS ---
Providers Date of admission: 12/07/16 13:50 Attending physician: Herman Dhillon Consults: 12/08/16 14:39 Consult Physician Routine Consulting Provider: Marcelo Sevilla Consult Reason/Comments: copd Do you want consulting provider notified?: Yes Primary care physician: Stated None Hospital Course: This 71-year-old woman who has not been followed by any primary physician recently was admitted with a COPD acute exacerbation as well as possible right bronchopneumonia with acute hypoxic respiratory failure. Patient was treated with IV antibiotics and IV steroids. Dr. Sevilla from pulmonary saw the patient. The patient improved significantly. Patient was monitored. The patient also had multiple other medical issues including hypokalemia hyperlipidemia and hypertension also. Overall patient made significant improvement. Patient was evaluated and nebulizer was suggested at home. On exam vitals are stable. Cardio S1 and S2 normal. Abdomen soft nontender. respiratory system few scattered rhonchi and crackles. Final diagnosis 1. COPD acute exacerbation with acute purulent tracheobronchitis and the right bronchopneumonia with acute hypoxic respiratory failure. 2. History and nicotine dependence. 3. Hypokalemia. 4. Hyperlipidemia. 5. Hypertension. . History of myocardial infarction Patient Condition at Discharge: Fair Plan - Discharge Summary New Discharge Prescriptions: New Acetaminophen Tab [Tylenol] 500 mg PO Q6HR PRN tab PRN Reason: Fever and/ or Mild Pain ALPRAZolam [Xanax] 0.25 mg PO TID PRN #20 tab PRN Reason: Anxiety Atorvastatin [Lipitor] 20 mg PO HS #30 tab Azithromycin [Zithromax] 500 mg PO Q24H #5 tab Budesonide/Formoterol Fumarate [Symbicort 160-4.5 Mcg Inhaler] 1 puff IH BID #1 hfa.aer.ad Carvedilol [Coreg*] 12.5 mg PO BID-W/MEALS #60 tab Cefuroxime Axetil [Ceftin] 500 mg PO BID #10 tab Citalopram Hydrobromide [CeleXA] 40 mg PO HS #30 tab Ipratropium-Albuterol Nebulize [Duoneb 0.5 mg-3 mg/3 ml Soln] 3 ml INHALATION RT-QID #120 neb Levothyroxine Sodium [Synthroid] 100 mcg PO DAILY@0630 #30 tab Lisinopril [Zestril] 10 mg PO HS #30 tab Montelukast [Singulair] 10 mg PO HS #30 tab Multivitamins, Thera [Multivitamin (formulary)] 1 each PO DAILY@1200 #30 tab Nicotine 21Mg/24Hr Patch [Habitrol] 1 patch TRANSDERM DAILY #30 patch Pantoprazole [Protonix] 40 mg PO AC-BRKFST #30 tab predniSONE 10 mg PO DIRECTED #30 tab Spironolactone [Aldactone] 25 mg PO DAILY #30 tab Discharge Medication List ALPRAZolam [Xanax] 0.25 mg PO TID PRN #20 tab 12/10/16 [Rx] Acetaminophen Tab [Tylenol] 500 mg PO Q6HR PRN tab 12/10/16 [Rx] Atorvastatin [Lipitor] 20 mg PO HS #30 tab 12/10/16 [Rx] Azithromycin [Zithromax] 500 mg PO Q24H #5 tab 12/10/16 [Rx] Budesonide/Formoterol Fumarate [Symbicort 160-4.5 Mcg Inhaler] 1 puff IH BID #1 hfa.aer.ad 12/10/16 [Rx] Carvedilol [Coreg*] 12.5 mg PO BID-W/MEALS #60 tab 12/10/16 [Rx] Cefuroxime Axetil [Ceftin] 500 mg PO BID #10 tab 12/10/16 [Rx] Citalopram Hydrobromide [CeleXA] 40 mg PO HS #30 tab 12/10/16 [Rx] Ipratropium-Albuterol Nebulize [Duoneb 0.5 mg-3 mg/3 ml Soln] 3 ml INHALATION RT -QID #120 neb 12/10/16 [Rx] Levothyroxine Sodium [Synthroid] 100 mcg PO DAILY@0630 #30 tab 12/10/16 [Rx] Lisinopril [Zestril] 10 mg PO HS #30 tab 12/10/16 [Rx] Montelukast [Singulair] 10 mg PO HS #30 tab 12/10/16 [Rx] Multivitamins, Thera [Multivitamin (formulary)] 1 each PO DAILY@1200 #30 tab 12/18 [Rx] Nicotine 21Mg/24Hr Patch [Habitrol] 1 patch TRANSDERM DAILY #30 patch 12/10/16 [ Rx] Pantoprazole [Protonix] 40 mg PO AC-BRKFST #30 tab 12/10/16 [Rx] Spironolactone [Aldactone] 25 mg PO DAILY #30 tab 12/10/16 [Rx] predniSONE 10 mg PO DIRECTED #30 tab 12/10/16 [Rx] Follow up Appointment(s)/Referral(s): Tavares May MD [STAFF PHYSICIAN] - 3 Days Marcelo Sevilla MD [STAFF PHYSICIAN] - 1 Week Ambulatory/Diagnostic Orders: Complete Blood Count w/diff [LAB.AMB] Location: Determined By Patient Patient Instructions/Handouts: COPD (Chronic Obstructive Pulmonary Disease) ( GEN) Activity/Diet/Wound Care/Special Instructions: diet reg act as tolerated no smokin Nebulizer from [facility] #[phone] Discharge Disposition: HOME SELF-CARE
== END 2016-12-10 15:50 | disposition home or self-care (01) | DRG 190 ==
LOC: EC 13:18 → 5MS5E 13:50
PROVIDERS: ADMIT Hospitalist; ATTEND Hospitalist
DX: J44.0 Chronic obstructive pulmonary disease with (acute) lower respiratory infection (principal); J18.0 Bronchopneumonia, unspecified organism; J96.01 Acute respiratory failure with hypoxia; J45.901 Unspecified asthma with (acute) exacerbation; I10 Essential (primary) hypertension; E78.5 Hyperlipidemia, unspecified; J44.1 Chronic obstructive pulmonary disease with (acute) exacerbation; E87.6 Hypokalemia; F17.200 Nicotine dependence, unspecified, uncomplicated; I25.10 Atherosclerotic heart disease of native coronary artery without angina pectoris; I25.2 Old myocardial infarction; Z82.49 Family history of ischemic heart disease and other diseases of the circulatory system; Z79.899 Other long term (current) drug therapy
CPT/HCPCS: 36415; 71020; 71275; 80048; 80053; 81001; 82550; 82553; 83036; 83735; 84100; 84484; 85025; 85610; 85730; 87070; 87077; 87086; 87186; 87205; 93005; 94640; 94760; 96361; 96374; 99291

== ENCOUNTER → 2017-02-09 | Outpatient (CLI) | payer MEDICARE ==
--- NOTE | 2017-02-09 10:30 | US ---
EXAMINATION TYPE: US carotid duplex BILAT DATE OF EXAM: 02/09/2017 COMPARISON: US 2012 CLINICAL HISTORY: I65.29 carotid artery stenosis. Stenosis, COPD, HTN EXAM MEASUREMENTS: RIGHT: Peak Systolic Velocity (PSV) cm/sec ----- Right CCA: 98.1 ----- Right ICA: 133.0 ----- Right ECA: 175.0 ICA/CCA ratio: 1.4 RIGHT: End Diastole cm/sec ----- Right CCA: 27.4 ----- Right ICA: 38.0 ----- Right ECA: 18.4 LEFT: Peak Systolic Velocity (PSV) cm/sec ----- Left CCA: 74.9 ----- Left ICA: 132.8 ----- Left ECA: 124.9 ICA/CCA ratio: 1.8 LEFT: End Diastole cm/sec ----- Left CCA: 26.2 ----- Left ICA: 44.9 ----- Left ECA: 18.2 VERTEBRALS (direction of flow): Right Vertebral: Antegrade Left Vertebral: Antegrade Rhythm: Normal Elevated velocities: right mid ICA, right mid ECA and left mid ICA, no significant stenosis. There is mild to moderate eccentric hyperechoic plaque at right carotid bulb extending into proximal internal and external carotid arteries. Peak systolic velocity right internal carotid artery is sligh tly elevated from normal range. End-diastolic velocity is upper limits of normal. Images on the left shoulder moderate eccentric plaque left carotid bulb. There is slight increased peak systolic and end -diastolic velocity left internal carotid artery. Ratio is upper limits of normal. IMPRESSION: Mild to moderate atherosclerotic change bilaterally, stenosis just over 50% in left inte rnal carotid artery may be present. Stenosis approaching but under 50% is felt present on the right s norma. Further investigation with CTA or MRA of the neck is advised to better evaluate and characterize .
--- NOTE | 2017-02-09 12:46 | ECHOF ---
Referral Reason:R01.1 murmur MEASUREMENTS -------- HEIGHT: 165.1 cm WEIGHT: 74.8 kg BP: RVIDd: 2.2 cm (< 3.3) IVSd: 0.8 cm (0.6 - 1.1) LVIDd: 5.1 cm (3.9 - 5.3) LVPWd: 0.9 cm (0.6 - 1.1) IVSs: 1.4 cm LVIDs: 3.5 cm LVPWs: 1.2 cm LAESV Index (A-L): 14.64 ml/m Ao Diam: 2.6 cm (2.0 - 3.7) AV Cusp: 1.5 cm (1.5 - 2.6) LA Diam: 3.8 cm (2.7 - 3.8) MV EXCURSION: 13.666 mm (> 18.000) MV EF SLOPE: 89 mm/s (70 - 150) EPSS: 0.9 cm MV E Adonay: 1.22 m/s MV DecT: 253 ms MV A Adonay: 1.52 m/s MV E/A Ratio: 0.80 RAP: 5.00 mmHg RVSP: 11.58 mmHg FINDINGS -------- Sinus rhythm. This was a technically adequate study. The left ventricular size is normal. Left ventricular wall thickness is normal. Overall left vent ricular systolic function is normal with, an EF between 55 - 60 %. The right ventricle is normal in size and function. Normal LA size by volume 22+/-6 ml/m2. The right atrium is normal in size. The aortic valve is trileaflet, and appears structurally normal. No aortic stenosis or regurgitation. The mitral valve leaflets are mildly thickened. Mild mitral regurgitation is present. Trace tricuspid regurgitation present. Right ventricular systolic pressure is normal at < 35 mmHg. There is no evidence of pulmonary hypertension. The pulmonic valve was not well visualized. There is no pulmonic regurgitation present. The aortic root size is normal. Normal inferior vena cava with normal inspiratory collapse consistent with estimated right atrial pre ssure of 5 mmHg. There is a trivial pericardial effusion present. CONCLUSIONS -------- 1. Sinus rhythm. 2. This was a technically adequate study. 3. Left ventricular wall thickness is normal. 4. Overall left ventricular systolic function is normal with, an EF between 55 - 60 %. 5. Normal LA size by volume 22+/-6 ml/m2. 6. The aortic valve is trileaflet, and appears structurally normal. No aortic stenosis or regurgitati on. 7. The mitral valve leaflets are mildly thickened. 8. Mild mitral regurgitation is present. 9. Trace tricuspid regurgitation present. 10. Right ventricular systolic pressure is normal at < 35 mmHg. 11. The pulmonic valve was not well visualized. 12. There is no pulmonic regurgitation present. 13. The aortic root size is normal. 14. There is a trivial pericardial effusion present. PLUG WIRER: Everette Leblanc RDCS
== END ==
LOC: RADUSMAIN 09:00
PROVIDERS: ATTEND Family Medicine
DX: I65.23 Occlusion and stenosis of bilateral carotid arteries (principal)
CPT/HCPCS: 93306; 93880

== ENCOUNTER → 2017-02-27 | Outpatient (CLI) | payer MEDICARE ==
[2017-02-27 16:50] LABS: Blood Urea Nitrogen 21 mg/dL (7-17); Non-African American GFR(MDRD) 54 (>60 ml/min/1.73 sqM)
--- NOTE | 2017-02-28 09:28 | CT ---
EXAMINATION TYPE: CT angio neck DATE OF EXAM: 02/27/2017 COMPARISON: NONE HISTORY: 71-year-old female with abnormal US per patient TECHNIQUE: Contiguous axial scanning of the neck performed with IV Contrast, patient injected with 65 mL of Visipaque 320. Coronal/sagittal MIP reconstructions performed. 3-D reconstructions generated o n a dedicated independent workstation. CT DLP: 508 mGycm Automated exposure control for dose reduction was used. FINDINGS: Maybe some mild circumferential wall thickening of the visualized esophagus. Correlate for any sympto ms of esophagitis and as to the need for direct visualization. Mild atherosclerotic arch calcifications. There is normal variant direct takeoff of the left vertebral artery directly from the aortic arch. Th ere may be moderate atherosclerotic narrowing at the left vertebral artery origin. Minimal atheroscle rotic narrowing at the origin of the right vertebral artery. The vertebral arteries are codominant an d patent throughout their course. The V4 segment of the left vertebral artery appears relatively dimi nutive. Mild eccentric atherosclerotic plaque within the right common carotid artery. Mild atherosclerotic c hange and calcification at the right carotid bulb with less than 15% narrowing in the proximal right ICA. Mild atherosclerotic narrowing at the origin of the left common carotid artery. Minimal atherosclerot ic calcification in the upper left common carotid artery. There is more moderate atherosclerotic hall ge at the left carotid bulb with a eccentric calcifications this contributes to a moderate (approxima tely 55%) stenosis by NASCET criteria. There appears to be atherosclerotic plaque occluding the proximal left subclavian artery just after i ts origin for a segment of 9 mm, coronal image 10 and axial image 74. IMPRESSION: 1. MODERATE ATHEROSCLEROTIC CHANGE AT THE LEFT BIFURCATION WITH A MODERATE (APPROXIMATELY 55%) STENOS IS AT THE LEFT CAROTID BULB. 2. MINIMAL (APPROXIMATELY 15%) ATHEROSCLEROTIC NARROWING AT THE PROXIMAL RIGHT ICA. 3. 9 MM SHORT SEGMENT OCCLUSION OF THE PROXIMAL LEFT SUBCLAVIAN ARTERY JUST AFTER ITS ORIGIN. 4. HOWEVER, WE NOTE A DIRECT ORIGIN OF THE LEFT VERTEBRAL ARTERY FROM THE AORTIC ARCH. THERE SEEMS TO BE MODERATE ATHEROSCLEROTIC NARROWING AT ITS ORIGIN. 5. MILD CIRCUMFERENTIAL WALL THICKENING OF THE VISUALIZED ESOPHAGUS, CORRELATE FOR ANY SYMPTOMS OF ES OPHAGITIS AND CORRELATE TO THE NEED FOR DIRECT VISUALIZATION.
== END | disposition home or self-care (01) ==
LOC: RADCTMAIN 16:08
PROVIDERS: ATTEND Family Medicine
DX: I65.23 Occlusion and stenosis of bilateral carotid arteries (principal); I70.8 Atherosclerosis of other arteries
CPT/HCPCS: 82565; 84520; 70498; 36415; Q9967

== ENCOUNTER 2017-04-17 10:24 | Day surgery (SDC) | payer MEDICARE ==
[2017-04-13 12:28] VITALS: BMI 28.3
[~2017-04-17 10:24] MED LIST: LACTATED RINGERS 1,000 ML IV SCH
[2017-04-17 11:00] VITALS: RESP 16; TEMP 97
[2017-04-17] MEDS ORDERED: LIDOCAINE 1% 20 ML VIAL (10MG/ML) FOR IV START INTRADERMA ONE (11:14)
[2017-04-17 11:26] LABS: Glucose,Whole Blood 98 mg/dL (75-99)
[2017-04-17] MEDS ORDERED: PROPOFOL 10 MG/ML 20 ML VIAL IV ONE (12:00)
[2017-04-17] MEDS ORDERED: LIDOCAINE 1% INJ 10MG/ML (20 ML MDV) ONE (12:00)
--- NOTE | 2017-04-17 12:38 | P.PCN ---
Date of Procedure: 04/17/17 Procedure(s) Performed: Procedure: Esophagogastroduodenoscopy and biopsy. Preoperative diagnosis: Abnormal CT of the neck. Postoperative diagnosis: 1. Mild corrugations of the esophagus but no other obvious abnormalities to correspond to the findings on CT. 2. Multiple biopsies obtained. 3. Small sliding hiatal hernia. 4. Mild gastritis and duodenitis. 5. Biopsies also obtained from the duodenum and antrum. Preparation sedation: Were provided by anesthesia. Brief clinical history: The patient a 71-year-old female who was found to have thickening of her esophagus on CT of the neck which was performed part of the evaluation of vascular issues. The patient denied any dysphagia, odynophagia or any chronic reflux or esophageal symptoms. No alarm symptoms such as weight loss or bleeding. Procedure: With the patient on her left lateral decubitus position and after informed consent and adequate sedation, I passed the Olympus-GIF 160 video upper endoscope through the cricopharyngeus down the esophagus. GE junction was around 40-41 cm from the incisors and there was a small sliding hiatal hernia around 1 cm in size. The esophagus showed mild corrugations but there were no obvious ulcers, erosions or strictures. There was no Hickey's esophagus or other pathology. The endoscope was then passed into the stomach which was insufflated with air and inspected in detail including the retroflex view in the cardia. There was some mottling and erythema some submucosal hemorrhages scattered in the antrum with no evidence of obvious erosions or ulcers. Similar findings were seen in the duodenum. No pyloric channel ulcers. I obtained biopsies from the duodenum, antrum in addition to the esophageal biopsies before the endoscope was withdrawn. The patient tolerated the procedure well. Plan: The patient was reassured. Will await pathology results and make further plans based on her course and biopsy results. She will follow-up with you as planned.
[2017-04-17 12:41] VITALS: BP 145/93; PULSE 82
== END 2017-04-17 13:23 | disposition home or self-care (01) ==
LOC: ORWHC2ENDO 10:24
DX: K44.9 Diaphragmatic hernia without obstruction or gangrene (principal); K29.50 Unspecified chronic gastritis without bleeding; K29.80 Duodenitis without bleeding; K21.9 Gastro-esophageal reflux disease without esophagitis; I25.10 Atherosclerotic heart disease of native coronary artery without angina pectoris; I10 Essential (primary) hypertension; E78.5 Hyperlipidemia, unspecified; J44.9 Chronic obstructive pulmonary disease, unspecified; E07.9 Disorder of thyroid, unspecified; Z79.51 Long term (current) use of inhaled steroids; Z79.52 Long term (current) use of systemic steroids; Z79.899 Other long term (current) drug therapy; Z88.5 Allergy status to narcotic agent; Z88.2 Allergy status to sulfonamides
CPT/HCPCS: 88305; 88342; 43239; J2001; J2704

== ENCOUNTER → 2017-11-21 | Outpatient (CLI) | payer MEDICARE ==
--- NOTE | 2017-11-21 14:00 | US ---
EXAMINATION TYPE: US carotid duplex BILAT DATE OF EXAM: 11/21/2017 COMPARISON: Previous exam 02/09/2017 CLINICAL HISTORY: I65.29 Carotid Artery Stenosis. No h/o stroke EXAM MEASUREMENTS: RIGHT: Peak Systolic Velocity (PSV) cm/sec ----- Right CCA: 97.2 ----- Right ICA: 87.3 ----- Right ECA: 139.5 ICA/CCA ratio: 0.9 RIGHT: End Diastole cm/sec ----- Right CCA: 23.5 ----- Right ICA: 30.1 ----- Right ECA: 13.4 LEFT: Peak Systolic Velocity (PSV) cm/sec ----- Left CCA: 88.7 ----- Left ICA: 102.8 ----- Left ECA: 119.7 ICA/CCA ratio: 1.2 LEFT: End Diastole cm/sec ----- Left CCA: 21.4 ----- Left ICA: 32.3 ----- Left ECA: 9.5 VERTEBRALS (direction of flow): Right Vertebral: Antegrade Left Vertebral: Antegrade Rhythm: Normal Heterogeneous plaque seen bilaterally with no significant stenosis seen. Grayscale, color Doppler, spectral Doppler imaging performed of the carotid arteries. Waveform analys is show significant stenosis of the proximal internal carotid arteries. IMPRESSION: No hemodynamic significant stenosis of the proximal internal carotid arteries bilaterall y by Doppler criteria, an indirect measurement of carotid stenosis
== END | disposition home or self-care (01) ==
LOC: RADUSWWP 12:17
PROVIDERS: ATTEND Family Medicine
DX: I65.29 Occlusion and stenosis of unspecified carotid artery (principal)
CPT/HCPCS: 93880

== ENCOUNTER → 2018-06-12 | Outpatient (CLI) | payer MEDICARE ==
[~2018-06-12] MED LIST changes: -LACTATED RINGERS 1,000 ML IV SCH; +REGADENOSON 0.4 MG/5 ML SYRINGE IV ONE
--- NOTE | 2018-06-12 11:00 | US ---
EXAMINATION TYPE: US carotid duplex BILAT DATE OF EXAM: 06/12/2018 COMPARISON: 11/21/2017 CLINICAL HISTORY: R55 Syncope, Hypertension I10, I25.2 Old [place]. Dizziness and lightheadedness per noy ent; smoker x 58 years. EXAM MEASUREMENTS: RIGHT: Peak Systolic Velocity (PSV) cm/sec ----- Right CCA: 94.2 ----- Right ICA: 100.5 ----- Right ECA: 149.1 mid ICA/CCA ratio: 1.1 RIGHT: End Diastole cm/sec ----- Right CCA: 27.3 ----- Right ICA: 29.8 ----- Right ECA: 17.0 LEFT: Peak Systolic Velocity (PSV) cm/sec ----- Left CCA: 82.2 ----- Left ICA: 117.4 ----- Left ECA: 155.0 prox ICA/CCA ratio: 1.4 LEFT: End Diastole cm/sec ----- Left CCA: 19.4 ----- Left ICA: 26.7 ----- Left ECA: 11.0 VERTEBRALS (direction of flow): Right Vertebral: Antegrade Left Vertebral: Antegrade Rhythm: Normal Moderate amount of mixed, irregular wall plaque is seen at bilateral carotid bifurcation with elevate d PSV in Bilateral E.ACl IMPRESSION: Moderate heterogeneous and irregular wall plaque with no significant hemodynamic stenosi s identified. Criteria for Assigning % of Stenosis / Diameter reduction (Estimation based on the indirect measurements of the internal carotid artery velocities (ICA PSV). 1. Normal (no stenosis)=ICA PSV < 125 cm/s: ratio < 2.0: ICA EDV<40 cm/s. 2. Less than 50% stenosis=ICA PSV < 125 cm/s: ratio < 2.0: ICA EDV<40 cm/s. 3. 50 to 69% stenosis=ICA PSV of 125 to 230 cm/s: ration 2.0 ? 4.0: ICA EDV 40-100 cm/s. 4. Greater than 70% stenosis to near occlusion= ICA PSV > 230 cm/s: ratio > 4.0: ICA EDV > 100 cm/s. 5. Near occlusion= ICA PSV velocities may be low or undetectable: variable ratio and ICA EDV. 6. Total occlusion=unable to detect flow.
--- NOTE | 2018-06-12 11:22 | NM ---
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 The patient received 0.4mg Lexiscan, 26.4 mCi Tc 99m Sestamibi - Stress images obtained [address] injection FINDINGS: Review of stress and rest SPECT images demonstrates no distinct reversible perfusion abnormality. Sm all fixed defect inferior wall may reflect remote insult versus attenuation artifact. Gated analysis shows normal wall motion with an estimated left ventricular ejection fraction of 63 %. IMPRESSION: No scintigraphic evidence for reversible ischemia.
--- NOTE | 2018-06-12 12:28 | ECHOF ---
Referral Reason:R55 I10 I25.2 MEASUREMENTS -------- HEIGHT: 165.1 cm WEIGHT: 75.3 kg BP: IVSd: 1.1 cm (0.6 - 1.1) LVIDd: 4.1 cm (3.9 - 5.3) LVPWd: 1.1 cm (0.6 - 1.1) IVSs: 1.4 cm LVIDs: 3.0 cm LVPWs: 1.4 cm LA Diam: 3.1 cm (2.7 - 3.8) Ao Diam: 2.3 cm (2.0 - 3.7) LA Diam: 3.4 cm (2.7 - 3.8) MV E Adonay: 1.02 m/s MV DecT: 257 ms MV A Adonay: 1.09 m/s MV E/A Ratio: 0.94 FINDINGS -------- Sinus rhythm. This was a techncally difficult study with suboptimal views, , Definity utilized for enhancement of i mages. The left ventricular size is normal. There is borderline concentric left ventricular hypertrophy. Overall left ventricular systolic function is normal with, an EF between 55 - 60 %. The right ventricle is normal in size. The left atrial size is normal. The right atrial size is normal. 4 ml of Lumason was utilized for enhancement of images. The aortic valve was not well visualized. Mild mitral annular calcification present. Mild mitral regurgitation is present. The tricuspid valve was not well visualized. Unable to estimate RVSP due to inadequate TR jet spect ral doppler profile. The pulmonic valve was not well visualized. There is no pulmonic regurgitation present. There is no pericardial effusion. CONCLUSIONS -------- 1. Sinus rhythm. 2. This was a techncally difficult study with suboptimal views, , Definity utilized for enhancement o f images. 3. The left ventricular size is normal. 4. There is borderline concentric left ventricular hypertrophy. 5. Overall left ventricular systolic function is normal with, an EF between 55 - 60 %. 6. The left atrial size is normal. 7. 4 ml of Lumason was utilized for enhancement of images. 8. The aortic valve was not well visualized. 9. Mild mitral annular calcification present. 10. Mild mitral regurgitation is present. 11. The tricuspid valve was not well visualized. 12. Unable to estimate RVSP due to inadequate TR jet spectral doppler profile. 13. The pulmonic valve was not well visualized. 14. There is no pericardial effusion. DEVELOPER [employer] MECHANICAL: Marianne Timmons RDCS
--- NOTE | 2018-06-12 14:31 | EST ---
EXERCISE STRESS AGE: 72 SEX: F HT: 65" WT: 166 PROTOCOL: Lexiscan Cardiolicte Stress Test HEART RATE REST: 65 BLOOD PRESSURE REST: 145/88 MAXIMUM HEART RATE ACHIEVED: 87 MAXIMUM BLOOD PRESSURE: 204/61 INDICATIONS: Syncope, hypertension. CLINICAL INFORMATION: Baseline rhythm is sinus mechanism, rate 65, normal axis and intervals, normal echocardiogram. Baseline blood pressure 145/88 mmHg. Patient received injection of Lexiscan. Electrocardiographic monitoring revealed no evidence of diagnostic ischemic ST deviation. Cardiolite was injected per protocol. CONCLUSION: 1. Nondiagnostic electrocardiographic stress testing. 2. Nuclear images will be reported separately. MMODL / IJN: [id number] /
== END | disposition home or self-care (01) ==
LOC: RADNMMAIN 07:55
PROVIDERS: ATTEND Family Medicine
DX: I65.23 Occlusion and stenosis of bilateral carotid arteries (principal); I10 Essential (primary) hypertension; I25.2 Old myocardial infarction; Z88.2 Allergy status to sulfonamides; Z88.5 Allergy status to narcotic agent
CPT/HCPCS: 93017; 93880; 78452; C8929; A9500; J2785; Q9950; 93306

== ENCOUNTER → 2018-07-10 | Outpatient (CLI) | payer MEDICARE ==
--- NOTE | 2018-07-10 15:51 | CT ---
EXAMINATION TYPE: CT brain wo/w con DATE OF EXAM: 07/10/2018 COMPARISON: 11/15/2010 HISTORY: dizziness, loss of balance, changes in memory, headaches, syncopal episodes CT DLP: 2214 mGycm Automated exposure control for dose reduction was used. CONTRAST: CT scan of the head is performed with IV Contrast, patient injected with 100 mL of Isovue 300. FINDINGS: There is diffuse abnormal low attenuation throughout the white matter. No definite enhancement. Findi ngs most likely in the basis of microvascular remote ischemia. No midline shift or mass effect. Calvarium intact. No acute intracranial hemorrhage. Changes of chron ic sinusitis. IMPRESSION: Diffuse nonspecific white matter low attenuation most likely in the basis of remote microvascular isc hemia. Consider MRI follow-up.
== END | disposition home or self-care (01) ==
LOC: RADCTMAIN 14:16
PROVIDERS: ATTEND Family Medicine
DX: R90.89 Other abnormal findings on diagnostic imaging of central nervous system (principal); R55 Syncope and collapse; Z88.2 Allergy status to sulfonamides; Z91.041 Radiographic dye allergy status
CPT/HCPCS: 82565; 84520; 70470; 36415; Q9967

== ENCOUNTER → 2018-08-09 | Outpatient (CLI) | payer MEDICARE ==
--- NOTE | 2018-08-09 17:35 | MR ---
EXAMINATION TYPE: MR brain wo/w con DATE OF EXAM: 08/09/2018 COMPARISON: Correlation CT 07/10/2018 HISTORY: 72-year-old female Syncope and collapse, ZAPATA TECHNIQUE: Multiplanar, multisequence images of the brain and brainstem were acquired before and aft er administration of 7.5 mL IV Gadavist. Diffusion weighted imaging is performed. FINDINGS: No evidence for acute infarction, hemorrhage, mass, mass effect, midline shift, herniation, effacemen t of basal cisterns, or extra-axial fluid collection. The ventricles and sulci are age-appropriate with mild generalized cerebral atrophy. Major intracranial flow voids are intact. T2/FLAIR weighted sequences show moderate burden of bright white matter change in the subcortical, de ep, and periventricular regions. The changes are confluent specially in the periatrial white matter. No brainstem or posterior fossa lesion is identified. Midline structures demonstrate normal morphology. The craniocervical junction is normal. Post contrast images demonstrate no evidence of pathologic enhancement. Dural venous sinuses are pat ent. Trace mucosal thickening ethmoid air cells and right maxillary sinus. Globes are intact. IMPRESSION: 1. No acute intracranial abnormality seen. No enhancing lesions. 2. Patchy and confluent changes of bright white matter change with moderate overall burden. Findings are nonspecific and likely related to chronic small vessel ischemic disease. Demyelinating disease, h ypertension, and Lyme's disease are some other possible differential considerations.
== END ==
LOC: RADMRIMAIN 13:13
PROVIDERS: ATTEND Family Medicine
DX: R90.89 Other abnormal findings on diagnostic imaging of central nervous system (principal)
CPT/HCPCS: 70553; A9585

== ENCOUNTER → 2018-11-05 | Outpatient (CLI) | payer MEDICARE ==
--- NOTE | 2018-11-05 15:56 | XR ---
EXAMINATION TYPE: XR hand complete LT DATE OF EXAM: 11/05/2018 CLINICAL HISTORY: Pain after fall injury a few weeks ago. TECHNIQUE: Frontal, lateral and oblique images of the left hand are obtained. COMPARISON: None. FINDINGS: Demineralization is present. There is no acute fracture/dislocation evident in the left jordan d. Moderate to severe narrowing of base of first metacarpal is present. Mild narrowing and spurring first interphalangeal joint . Mild diffuse soft tissue swelling. IMPRESSION: There is no acute fracture or dislocation in the left hand.
--- NOTE | 2018-11-05 15:57 | XR ---
EXAMINATION TYPE: XR knee complete LT DATE OF EXAM: 11/05/2018 CLINICAL HISTORY: Pain from fall injury a few weeks ago. TECHNIQUE: Three views of the left knee are obtained. COMPARISON: None. FINDINGS: There is no acute fracture/dislocation evident in left knee. Mild to moderate narrowing wi th mild spurring medial tibial femoral compartment. Lateral tibiofemoral and patellofemoral compartme nts are maintained. Demineralization is present. The overlying soft tissue appears unremarkable. IMPRESSION: There is no acute fracture or dislocation in the left knee.
== END | disposition home or self-care (01) ==
LOC: RADXRMAIN 15:37
PROVIDERS: ATTEND Family Medicine
DX: M25.562 Pain in left knee (principal); M79.642 Pain in left hand

== ENCOUNTER 2020-09-10 17:41 | Emergency (ER) | payer MEDICARE ==
[2020-09-10] MEDS ORDERED: SODIUM CHLORIDE 0.9% 500 ML 500 ML IV STA (17:54)
[2020-09-10 18:05] LABS: Basophils % (A) 0 %; Eosinophils # (A) 0.3 k/uL (0-0.7); Eosinophils % (A) 3 %; HCT 42.6 % (34.0-46.0); HGB 14.7 gm/dL (11.4-16.0); Lymphocytes % (A) 10 %; MCH 33.2 pg (25.0-35.0); MCHC 34.4 g/dL (31.0-37.0); MCV 96.3 fL (80.0-100.0); Mean Platelet Volume 8.5; Monocytes # (A) 0.5 k/uL (0-1.0); Monocytes % (A) 5 %; Neutrophils # (A) 8.3 k/uL (1.3-7.7); Neutrophils % (A) 81 %; Platelet Count 192 k/uL (150-450); RBC 4.42 m/uL (3.80-5.40); RDW 12.6 % (11.5-15.5); WBC 10.1 k/uL (3.8-10.6)
--- NOTE | 2020-09-10 18:12 | ED ---
General Adult HPI - General Chief complaint: Weakness Stated complaint: syncope Time Seen by Provider: 09/10/20 17:44 Source: patient, EMS, RN notes reviewed, old records reviewed Mode of arrival: EMS Limitations: no limitations - History of Present Illness Initial comments: 74-year-old female presents with near syncope or momentary syncopal episode. Gennaro lee was transported by EMS after the son found her minimally responsive. She had not been on her medication for approximately one month and then today began taking her medication again which does include beta nitin. She denies any central chest pain or abdominal pain. No fever. No nausea vomiting. No focal numbness or weakness. - Related Data Home Medications Medication Instructions Recorded Confirmed Albuterol Sulfate [Ventolin HFA] 2 puff INHALATION RT-Q4H PRN 09/10/20 09/10/20 Atorvastatin [Lipitor] 80 mg PO DAILY 09/10/20 09/10/20 Fluticasone/Umeclidin/Vilanter 1 puff INHALATION RT-DAILY 09/10/20 09/10/20 [Trelegy Ellipta 100-62.5-25] Levothyroxine Sodium [Synthroid] 100 mcg PO AC-BRKFST 09/10/20 09/10/20 Topiramate [Topamax] 50 mg PO DAILY 09/10/20 09/10/20 carvediloL [Coreg*] 12.5 mg PO AC-BID 09/10/20 09/10/20 lisinopriL [Zestril] 10 mg PO BID 09/10/20 09/10/20 Previous Rx's Medication Instructions Recorded Citalopram Hydrobromide [CeleXA] 40 mg PO HS #30 tab 12/10/16 Spironolactone [Aldactone] 25 mg PO DAILY #30 tab 12/10/16 Allergies Allergy/AdvReac Type Severity Reaction Status Date / Time codeine Allergy Unknown Verified 04/17/17 10:56 Sulfa (Sulfonamide Allergy Unknown Verified 04/17/17 10:56 Antibiotics) Review of Systems ROS Statement: Those systems with pertinent positive or pertinent negative responses have been documented in the HPI. ROS Other: All systems not noted in ROS Statement are negative. Past Medical History Past Medical History: Coronary Artery Disease (CAD), COPD, Hyperlipidemia, Hypertension, Myocardial Infarction (AR), Thyroid Disorder Additional Past Medical History / Comment(s): left carotid stenosis, left subclavian artery stenosis, Last Myocardial Infarction Date:: 2007 History of Any Multi-Drug Resistant Organisms: None Reported Past Surgical History: Adenoidectomy, Cholecystectomy, Heart Catheterization With Stent, Hysterectomy, Tonsillectomy Additional Past Surgical History / Comment(s): goiter removal 1965,. COLONOSCOPY Past Anesthesia/Blood Transfusion Reactions: No Reported Reaction Date of Last Stent Placement:: 2008 Past Psychological History: No Psychological Hx Reported Smoking Status: Current every day smoker Past Alcohol Use History: None Reported Past Drug Use History: None Reported - Past Family History Father Family Medical History: Myocardial Infarction (AR) Mother Family Medical History: Diabetes Mellitus General Exam Limitations: no limitations General appearance: alert, in no apparent distress Head exam: Present: atraumatic, normocephalic Eye exam: Present: normal appearance, PERRL ENT exam: Present: normal exam Neck exam: Present: normal inspection. Absent: tenderness, meningismus Respiratory exam: Present: normal lung sounds bilaterally. Absent: respiratory distress, wheezes Cardiovascular Exam: Present: normal rhythm, bradycardia GI/Abdominal exam: Present: soft. Absent: distended, tenderness, guarding Extremities exam: Present: normal inspection, normal capillary refill. Absent: pedal edema, calf tenderness Neurological exam: Present: alert, oriented X3, CN II-XII intact. Absent: motor sensory deficit Psychiatric exam: Present: normal affect, normal mood Skin exam: Present: warm, dry, intact. Absent: cyanosis, diaphoretic Course Vital Signs 09/10/20 09/10/20 17:43 18:51 Pulse Rate 49 L 52 L Respiratory 20 20 Rate Blood Pressure 157/70 134/71 O2 Sat by Pulse 92 L 97 Oximetry - Reevaluation(s) Reevaluation #1: 09/10/20 20:25 Patient reevaluated, resting comfortably, no complaints, eager for discharge. EKG Findings - EKG Comments: EKG Findings:: EKG: Sinus bradycardia, rate 51, IN interval 158 QRS duration 90, QTC 451, no ST segment elevation. Medical Decision Making - Medical Decision Making 74-year-old female with either near-syncopal or brief syncopal episode. Patient had taken her medications which she has not taken them about one month today. No palpitations or chest pain. No vomiting or diarrhea. Patient is in sinus bradycardia upon arrival with stable blood pressure. She has a normal CBC, normal CMP, negative troponin. Chest x-rays negative for focal findings. I did discuss case with Dr. Hall covering for Dr. Mccracken. - Lab Data Result diagrams: 09/10/20 17:56 09/10/20 17:56 Lab Results 09/10/20 09/10/20 09/10/20 Range/Units 17:56 17:56 17:56 WBC 10.1 (3.8-10.6) k/uL RBC 4.42 (3.80-5.40) m/uL Hgb 14.7 (11.4-16.0) gm/dL Hct 42.6 (34.0-46.0) % MCV 96.3 (80.0-100.0) fL MCH 33.2 (25.0-35.0) pg MCHC 34.4 (31.0-37.0) g/dL RDW 12.6 (11.5-15.5) % Plt Count 192 (150-450) k/uL MPV 8.5 Neutrophils % 81 % Lymphocytes % 10 % Monocytes % 5 % Eosinophils % 3 % Basophils % 0 % Neutrophils # 8.3 H (1.3-7.7) k/uL Lymphocytes # 1.0 (1.0-4.8) k/uL Monocytes # 0.5 (0-1.0) k/uL Eosinophils # 0.3 (0-0.7) k/uL Basophils # 0.0 (0-0.2) k/uL PT 10.5 (9.0-12.0) sec INR 1.0 (<1.2) APTT 21.1 L (22.0-30.0) sec Sodium 139 (137-145) mmol/L Potassium 4.3 (3.5-5.1) mmol/L Chloride 109 H (98-107) mmol/L Carbon Dioxide 26 (22-30) mmol/L Anion Gap 4 mmol/L BUN 14 (7-17) mg/dL Creatinine 0.90 (0.52-1.04) mg/dL Est GFR (CKD-EPI)AfAm 72 (>60 ml/min/1.73 sqM) Est GFR (CKD-EPI)NonAf 63 (>60 ml/min/1.73 sqM) Glucose 118 H (74-99) mg/dL Calcium 9.0 (8.4-10.2) mg/dL Total Bilirubin 0.6 (0.2-1.3) mg/dL AST 21 (14-36) U/L ALT 10 (4-34) U/L Alkaline Phosphatase 71 (38-126) U/L Troponin I (0.000-0.034) ng/mL Total Protein 6.0 L (6.3-8.2) g/dL Albumin 3.7 (3.5-5.0) g/dL 09/10/20 Range/Units 17:56 WBC (3.8-10.6) k/uL RBC (3.80-5.40) m/uL Hgb (11.4-16.0) gm/dL Hct (34.0-46.0) % MCV (80.0-100.0) fL MCH (25.0-35.0) pg MCHC (31.0-37.0) g/dL RDW (11.5-15.5) % Plt Count (150-450) k/uL MPV Neutrophils % % Lymphocytes % % Monocytes % % Eosinophils % % Basophils % % Neutrophils # (1.3-7.7) k/uL Lymphocytes # (1.0-4.8) k/uL Monocytes # (0-1.0) k/uL Eosinophils # (0-0.7) k/uL Basophils # (0-0.2) k/uL PT (9.0-12.0) sec INR (<1.2) APTT (22.0-30.0) sec Sodium (137-145) mmol/L Potassium (3.5-5.1) mmol/L Chloride (98-107) mmol/L Carbon Dioxide (22-30) mmol/L Anion Gap mmol/L BUN (7-17) mg/dL Creatinine (0.52-1.04) mg/dL Est GFR (CKD-EPI)AfAm (>60 ml/min/1.73 sqM) Est GFR (CKD-EPI)NonAf (>60 ml/min/1.73 sqM) Glucose (74-99) mg/dL Calcium (8.4-10.2) mg/dL Total Bilirubin (0.2-1.3) mg/dL AST (14-36) U/L ALT (4-34) U/L Alkaline Phosphatase (38-126) U/L Troponin I <0.012 (0.000-0.034) ng/mL Total Protein (6.3-8.2) g/dL Albumin (3.5-5.0) g/dL Disposition Clinical Impression: Medication reaction, Near syncope, Dehydration Disposition: HOME SELF-CARE Condition: Good Instructions (If sedation given, give patient instructions): Near Syncope (ED) Additional Instructions: Please call her primary care physician in the morning for appointment. Is patient prescribed a controlled substance at d/c from ED?: No Referrals: Low Mccracken Jr, [Primary Care Provider] - 1-2 days Time of Disposition: 20:35
[2020-09-10 18:14] LABS: Albumin 3.7 g/dL (3.5-5.0); Total Bilirubin 0.6 mg/dL (0.2-1.3)
[2020-09-10 18:19] LABS: Prothrombin Time 10.5 sec (9.0-12.0)
[2020-09-10 18:20] LABS: Potassium 4.3 mmol/L (3.5-5.1)
[2020-09-10 18:25] LABS: Partial Thromboplastin Time 21.1 sec (22.0-30.0)
--- NOTE | 2020-09-10 19:39 | XR ---
EXAMINATION: XR chest 2V DATE AND TIME: 09/10/2020 7:18 PM CLINICAL INDICATION: PHH; syncope TECHNIQUE: Departmental protocol COMPARISON: 12/07/2016 FINDINGS: The lungs appear to be well expanded and clear bilaterally. It appears similar to the prior study. The pleural spaces are negative. The cardiac silhouette is not enlarged. The remainder of the mediastinal silhouette is unremarkable. The skeletal structures and soft tissues are negative for acute findings. IMPRESSION: No definite acute radiographic process.
[2020-09-10 21:07] VITALS: BP 143/71; PULSE 58; RESP 16
== END 2020-09-10 21:07 | disposition home or self-care (01) ==
LOC: EC 17:41
DX: E86.0 Dehydration (principal); R55 Syncope and collapse; T44.7X5A Adverse effect of beta-adrenoreceptor antagonists, initial encounter; I10 Essential (primary) hypertension; J44.9 Chronic obstructive pulmonary disease, unspecified; E78.5 Hyperlipidemia, unspecified; I25.10 Atherosclerotic heart disease of native coronary artery without angina pectoris; I25.2 Old myocardial infarction; F17.200 Nicotine dependence, unspecified, uncomplicated; Z79.899 Other long term (current) drug therapy; Z79.51 Long term (current) use of inhaled steroids
CPT/HCPCS: 71046; 80053; 84484; 85025; 85610; 85730; 93005; 99284

== ENCOUNTER → 2020-09-22 | Outpatient (CLI) | payer MEDICARE ==
--- NOTE | 2020-09-22 14:25 | US ---
EXAMINATION TYPE: US carotid duplex BILAT DATE OF EXAM: 09/22/2020 COMPARISON: NONE CLINICAL HISTORY: R42 DIZZINESS. EXAM MEASUREMENTS: RIGHT: Peak Systolic Velocity (PSV) cm/sec ----- Right CCA: 84.3 ----- Right ICA: 122.0 ----- Right ECA: 165 ICA/CCA ratio: 1.45 RIGHT: End Diastole cm/sec ----- Right CCA: 15.1 ----- Right ICA: 39.4 ----- Right ECA: 15.4 LEFT: Peak Systolic Velocity (PSV) cm/sec ----- Left CCA: 91.7 ----- Left ICA: 92.2 ----- Left ECA: 145 ICA/CCA ratio: 1.0 LEFT: End Diastole cm/sec ----- Left CCA: 19.7 ----- Left ICA: 29.3 ----- Left ECA: 0.0 VERTEBRALS (direction of flow): Right Vertebral: Antegrade Left Vertebral: Antegrade Rhythm: Normal No significant velocity elevations, mild to moderate plaque. IMPRESSION: No sonographic evidence for hemodynamically significant stenosis in the bilateral carotid arteries. Criteria for Assigning % of Stenosis / Diameter reduction (Estimation based on the indirect measurements of the internal carotid artery velocities (ICA PSV). 1. Normal (no stenosis)=ICA PSV < 125 cm/s: ratio < 2.0: ICA EDV<40 cm/s. 2. Less than 50% stenosis=ICA PSV < 125 cm/s: ratio < 2.0: ICA EDV<40 cm/s. 3. 50 to 69% stenosis=ICA PSV of 125 to 230 cm/s: ration 2.0 ? 4.0: ICA EDV 40-100 cm/s. 4. Greater than 70% stenosis to near occlusion= ICA PSV > 230 cm/s: ratio > 4.0: ICA EDV > 100 cm/s. 5. Near occlusion= ICA PSV velocities may be low or undetectable: variable ratio and ICA EDV. 6. Total occlusion=unable to detect flow.
== END | disposition home or self-care (01) ==
LOC: RADUSWWP 13:37
PROVIDERS: ATTEND Family Medicine
DX: R42 Dizziness and giddiness (principal)
CPT/HCPCS: 93880